=== PATIENT | male | born 2000 | race Caucasian/White ===

== ENCOUNTER 2022-03-16 19:45 | Emergency (ER) | payer MEDICAID ==
[~2022-03-16] VITALS: Ht 167.6 cm; Wt 88.5 kg
[2022-03-16 20:32] VITALS: BP_SYST 159
--- NOTE | 2022-03-16 20:40 | NUR ---
PT FROM HOME WITH C/O GUM PAIN THAT STARTED 2 DAYS AGO. PAIN 8/10. PT HAS HISTORY OF GUM PAIN. NO BLEEDING NOTED ON GUMS. BP SLIGHTLY ELEVATED DR. SCHULTZ MADE AWARE.
--- NOTE | 2022-03-16 20:40 | NUR ---
PT PLACED IN WAITING ROOM.
--- NOTE | 2022-03-16 20:45 | NUR ---
DR. SCHULTZ WITH PATIENT IN TRIAGE ROOM.
[2022-03-16] MEDS ORDERED: PENI250T2 PO (20:46)
[2022-03-16] MEDS ORDERED: IBUP-1971 PO (20:46)
--- NOTE | 2022-03-16 21:35 | NUR ---
Pt left prior to receiving D/C papers. Contacted pt per number provided. Pt verbalizes understanding of Dx and instructions as communicated with ER MD. Pt aware of RX. No questions verbalized.
== END 2022-03-16 21:35 | disposition home or self-care (01) ==
LOC: SED 19:45
DX: K05.10 Chronic gingivitis, plaque induced (principal); Z79.899 Other long term (current) drug therapy
CPT/HCPCS: 99283